=== PATIENT | male | born 1985 | race Caucasian/White ===

== ENCOUNTER 2022-02-22 19:33 | Emergency (ER) | payer SELFPAY ==
[~2022-02-22] VITALS: Ht 188 cm; Wt 95.5 kg
[2022-02-22 19:40] VITALS: TEMP 98.1
[2022-02-22 20:50] VITALS: BP 134/85; PULSE 96
== END 2022-02-22 20:50 | disposition home or self-care (01) ==
LOC: COL.ER 19:33
DX: S42.022A Displaced fracture of shaft of left clavicle, initial encounter for closed fracture (principal); Z28.310 Unvaccinated for COVID-19; V17.4XXA Pedal cycle driver injured in collision with fixed or stationary object in traffic accident, initial encounter; Y92.410 Unspecified street and highway as the place of occurrence of the external cause

== ENCOUNTER 2022-06-26 11:25 | Emergency (ER) | payer SELFPAY ==
[~2022-06-26] VITALS: Ht 188 cm; Wt 95.5 kg
[2022-06-26 11:35] VITALS: TEMP 100.3
[2022-06-26 15:35] VITALS: BP 117/75; PULSE 90
== END 2022-06-26 15:35 | disposition home or self-care (01) ==
LOC: COL.ER 11:25
DX: J11.1 Influenza due to unidentified influenza virus with other respiratory manifestations (principal); R36.9 Urethral discharge, unspecified; F17.210 Nicotine dependence, cigarettes, uncomplicated; Z20.822 Contact with and (suspected) exposure to COVID-19; Z28.310 Unvaccinated for COVID-19
CPT/HCPCS: J0696